=== PATIENT | female | born 1995 | race Two or more races ===

== ENCOUNTER 2020-03-23 12:25 | Inpatient (IN) | payer BC ==
[2020-03-23] MEDS ORDERED: Nalbuphine 10 MG/ML Syringe IVPUSH PRN (13:46)
[2020-03-23] MEDS ORDERED: Sodium Chloride 0.9% 10 ML Syringe FLUSH PRN (13:46)
[2020-03-23] MEDS ORDERED: Ondansetron 4 MG/2 ML SDV IVPUSH PRN (13:46)
--- NOTE | 2020-03-23 13:49 | PCM.LDHP ---
L&D History of Present Illness - General Date of Service: 03/23/20 Admit Problem/Dx: Patient Status Order with Admit Dx/Problem 03/23/20 12:34 Patient Status [ADT] Routine 03/23/20 13:47 Patient Status [ADT] Routine Admission Diagnosis/Problem Admission Diagnosis/Problem Source of Information: Patient History Limitations: Reports: No Limitations - History of Present Illness Introduction:: Patient is a 24 y/o at 40 3/7 wks who presents in labor. Contractions started earlier today. About every 7 minutes or so. No VB or LOF yet. - Related Data Allergies/Adverse Reactions: Allergies Allergy/AdvReac Type Severity Reaction Status Date / Time No Known Allergies Allergy Verified 03/23/20 12:33 Past Medical History - Past Health History Medical/Surgical History: Denies Medical/Surgical History - Past Surgical History HEENT Surgical History: Reports: Tonsillectomy Social & Family History - Tobacco Use Smoking Status *Q: Never Smoker - Alcohol Use Alcohol Use History: No - Recreational Drug Use Recreational Drug Use: No H&P Review of Systems - Review of Systems: Review Of Systems: See Below General: Reports: No Symptoms Pulmonary: Reports: No Symptoms Cardiovascular: Reports: No Symptoms Gastrointestinal: Reports: Abdominal Pain Genitourinary: Reports: No Symptoms Musculoskeletal: Reports: No Symptoms Psychiatric: Reports: No Symptoms Neurological: Reports: No Symptoms L&D Exam - Exam Exam: See Below - Vital Signs Weight: 64.093 kg - OB Specific Contraction Intensity: Moderate Movement: Active Heart Tones: Present Heart Tones per Min: 145 Heart Rate (FHR) Variability: Moderate (6-25 bmp) Presentation: Vertex - Mendoza Score Mendoza Score Cervix Position: Anterior Mendoza Score Consistency: Soft Mendoza Score Effacement: 51-70% Mendoza Score Dilation: 1-2 cm Mendoza Score Infant's Station: -2 Mendoza Score Total: 8 - Exam General: Alert, Oriented, Cooperative Lungs: Clear to Auscultation, Normal Respiratory Effort Cardiovascular: Regular Rate, Regular Rhythm GI/Abdominal Exam: Soft, Non-Tender Genitourinary: Normal external exam Extremities: Normal Inspection Skin: Warm, Dry, Intact - Patient Data Lab Results Last 24 hrs: Laboratory Results - last 24 hr 03/23/20 Range/Units 12:49 SARS CoV-2 RNA Rapid IZABEL Negative (NEGATIVE) - Problem List (1) 40 weeks gestation of SNOMED Code(s): 58749105 ICD Code: Z3A.40 - 40 WEEKS GESTATION OF Status: Acute Current Visit: Yes Problem List Initiated/Reviewed/Updated: Yes Orders Last 24hrs: Active Orders 24 hr Category Date Time Status Patient Status [ADT] Routine ADT 03/23/20 12:34 Active Patient Status [ADT] Routine ADT 03/23/20 13:47 Ordered Activity as Tolerated [RC] PFP Care 03/23/20 13:47 Ordered Communication Order [RC] ASDIRECTED Care 03/23/20 13:47 Ordered Heart Tones [RC] ASDIRECTED Care 03/23/20 13:47 Ordered Non Stress Test [RC] PER UNIT ROUTINE Care 03/23/20 12:34 Active Notify Provider [RC] PFP Care 03/23/20 13:47 Ordered Notify Provider [RC] PRN Care 03/23/20 13:47 Ordered Peripheral IV Care [RC] . DIRECTED Care 03/23/20 13:47 Ordered Vital Signs [RC] PER UNIT ROUTINE Care 03/23/20 12:34 Active Vital Signs [RC] PER UNIT ROUTINE Care 03/23/20 13:47 Ordered Regular Diet [DIET] Diet 03/23/20 Lunch Ordered CBC W/O DIFF,HEMOGRAM [HEME] Routine Lab 03/23/20 13:46 Ordered RAPID PLASMA REAGIN,RPR [CHEM] Routine Lab 03/23/20 13:47 Ordered TYPE AND SCREEN [BBK] Routine Lab 03/23/20 13:46 Ordered Lactated Ringers [Ringers, Lactated] 1,000 ml Med 03/23/20 14:00 Ordered IV ASDIRECTED Nalbuphine [Nubain] Med 03/23/20 13:46 Ordered 10 mg IVPUSH Q2H PRN Ondansetron [Zofran] Med 03/23/20 13:46 Ordered 4 mg IVPUSH Q4H PRN Oxytocin/Lactated Ringers [Pitocin in LR 10 Units/1,000 Med 03/23/20 14:00 Ordered ML] 10 unit in 1,000 ml IV .CONTINUOUS Sodium Chloride 0.9% [Saline Flush] Med 03/23/20 13:46 Ordered 10 ml FLUSH ASDIRECTED PRN Electronic Heart Tones Ext w TOCO [WOMSER] Ot 03/23/20 13:47 Ordered Routine Electronic Heart Tones Internal [WOMSER] Per Unit Ot 03/23/20 13:47 Ordered Routine Peripheral IV Insertion Adult [OM.PC] Routine Ot 03/23/20 13:47 Ordered Resuscitation Status Routine Resus Stat 03/23/20 12:34 Ordered Assessment/Plan Comment:: * Labs done * GBS negative * Pain management per patient preference * Anticipate
[2020-03-23] MEDS ORDERED: Oxytocin/Lactated Ringers 10 UNIT/1,000 ML BAG IV SCH ×2 (14:00→20:30)
[2020-03-23] MEDS: Lactated Ringers 1,000 ML IV SCH ×4 (15:00→22:30)
[2020-03-23] MEDS ORDERED: diphenhydrAMINE 50 MG/ML SDV IVPUSH PRN (16:08)
[2020-03-23] MEDS ORDERED: fentaNYL 100 MCG/2 ML SDV EPIDUR PRN (16:08)
[2020-03-23] MEDS ORDERED: ePHEDrine 50 MG/ML SDV IVPUSH PRN (16:08)
[2020-03-23] MEDS: Bupivacaine/fentaNYL/NS 100 ML Bag EPIDUR PRN (16:40)
--- NOTE | 2020-03-23 16:52 | PCM.PREANE ---
Preanesthetic Assessment - Procedure Proposed Procedure: Continuous Labor Epidural - Anesthesia/Transfusion/Family Hx Anesthesia History: No Prior Anesthesia Family History of Anesthesia Reaction: No Transfusion History: No Prior Transfusion(s) - Review of Systems General: No Symptoms Pulmonary: No Symptoms Cardiovascular: No Symptoms Gastrointestinal: No Symptoms Neurological: No Symptoms Other: Reports: None - Physical Assessment NPO Status Date: 03/23/20 (Full stomach) Vital Signs: Last Vital Signs Temp 37.3 C 03/23/20 12:47 Pulse 87 03/23/20 13:00 Resp 14 03/23/20 12:47 BP 125/78 03/23/20 13:00 Pulse Ox 99 03/23/20 12:47 Height: 4 ft 11 in Weight: 64.093 kg ASA Class: 1 Mental Status: Alert & Oriented x3 Airway Class: Mallampati = 2 Dentition: Reports: Normal Dentition ROM/Head Extension: Full Lungs: Clear to Auscultation, Normal Respiratory Effort Cardiovascular: Regular Rate, Regular Rhythm - Lab Values: Laboratory Last Values WBC 11.81 K/mm3 (3.98-10.04) H 03/23/20 15:32 RBC 3.85 M/mm3 (3.98-5.22) L 03/23/20 15:32 Hgb 11.7 gm/dl (11.2-15.7) 03/23/20 15:32 Hct 35.1 % (34.1-44.9) 03/23/20 15:32 MCV 91.2 fl (79.4-94.8) 03/23/20 15:32 MCH 30.4 pg (25.6-32.2) 03/23/20 15:32 MCHC 33.3 g/dl (32.2-35.5) 03/23/20 15:32 RDW Std Deviation 42.4 fL (36.4-46.3) 03/23/20 15:32 Plt Count 231 K/mm3 (182-369) 03/23/20 15:32 MPV 10.8 fl (9.4-12.3) 03/23/20 15:32 SARS CoV-2 RNA Rapid IZABEL Negative (NEGATIVE) 03/23/20 12:49 - Allergies Allergies/Adverse Reactions: Allergies Allergy/AdvReac Type Severity Reaction Status Date / Time No Known Allergies Allergy Verified 03/23/20 15:05 - Acknowledgements Anesthesia Type Planned: Epidural Pt an Appropriate Candidate for the Planned Anesthesia: Yes Alternatives and Risks of Anesthesia Discussed w Pt/Guardian: Yes Pt/Guardian Understands and Agrees with Anesthesia Plan: Yes PreAnesthesia Questionnaire - Past Health History Medical/Surgical History: Denies 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: - Past Surgical History HEENT Surgical History: Reports: Tonsillectomy - SUBSTANCE USE Smoking Status *Q: Never Smoker Tobacco Use Within Last Twelve Months: No Second Hand Smoke Exposure: No Recreational Drug Use History: No - HOME MEDS Home Medications: Home Meds Acetaminophen [Tylenol] 650 mg PO Q6HR 03/23/20 [History] Pnv No.95/Ferrous Fum/Folic AC [ Tablet] 1 tab PO DAILY 03/23/20 [History] - CURRENT (IN HOUSE) MEDS Current Meds: Current Medications Diphenhydramine HCl (Benadryl) 25 mg IVPUSH Q6H PRN PRN Reason: pruritis Ephedrine Sulfate (Ephedrine Sulfate) 5 mg IVPUSH ASDIRECTED PRN PRN Reason: Hypotension Fentanyl (Sublimaze) 100 mcg EPIDUR Q3H PRN PRN Reason: Pain Last Admin: 03/23/20 16:40 Dose: 100 mcg Documented by: Fentanyl/Bupivacaine HCl (Fentanyl/Bupivacaine/Ns 2 Mcg-0.125% 100 Ml) 100 ml EPIDUR ASDIRECTED PRN PRN Reason: Pain Last Admin: 03/23/20 16:40 Dose: 100 ml Documented by: Lactated Ringer's (Ringers, Lactated) 1,000 mls @ 100 mls/hr IV ASDIRECTED JOSSUE Last Admin: 03/23/20 16:02 Dose: 500 mls/hr Documented by: Oxytocin/Lactated Ringer's (Pitocin In Lr 10 Units/1,000 Ml) 10 unit in 1,000 mls @ 500 mls/hr IV .CONTINUOUS JOSSUE Nalbuphine HCl (Nubain) 10 mg IVPUSH Q2H PRN PRN Reason: Pain Ondansetron HCl (Zofran) 4 mg IVPUSH Q4H PRN PRN Reason: Nausea/Vomiting Sodium Chloride (Saline Flush) 10 ml FLUSH ASDIRECTED PRN PRN Reason: Keep Vein Open
[2020-03-23] MEDS ORDERED: Calcium Carbonate 500 MG Tab.Chew PO PRN (23:17)
[2020-03-24] MEDS: Bupivacaine/fentaNYL/NS 100 ML Bag EPIDUR PRN (00:47)
[2020-03-24] MEDS ORDERED: Acetaminophen 325 MG Tab PO PRN ×2 (01:31→07:40)
[2020-03-24] MEDS ORDERED: Lidocaine 1.5% with EPINEPHrine 1:200,000 5 ML Amp ONE (02:00)
[2020-03-24] MEDS ORDERED: Lidocaine 1% 10 ML MDV ONE (02:00)
[2020-03-24] MEDS ORDERED: Ampicillin 2 GM in Sodium Chloride 0.9% 100 ML IV SCH (02:00)
--- NOTE | 2020-03-24 06:16 | PCM.DEL ---
L & D Note - General Info Date of Service: 03/24/20 - Delivery Note Labor: Augmented by Oxytocin Delivery Outcome: Livebirth Delivery Method: Spontaneous Vaginal Delivery-Single Infant Delivery Mode: Spontaneous Presentation: Right Occiput Anterior (ASH) Nuchal Cord: None Anesthesia Type: Epidural Amniotic Fluid Description: Clear Episiotomy Type: None Laceration: 2nd Degree Suture type: Vicryl Suture size: 2-0 Placenta: Intact, Spontaneous Cord: 3 Vessels Estimated Blood Loss: 200 Resuscitation Needed: Yes : Bulb Syringe, Stimulated, Warmed, [place] Used, Warmer Used Delivery Comments (Free Text/Narrative):: Patient found to be complete and began pushing. With maternal pushing effort head delivered from an ASH presentation. No nuchal cord present. With gentle downward traction the shoulders and body delivered . Infant placed on maternal abdomen. Cord clamped and cut. Cord blood obtained. Placenta allowed time to separate and expelled intact. Inspection of perineum showed a 2nd degree laceration which was repaired with a 2-0 vicryl in the typical fashion - General Info Date of Service: 03/24/20 - Patient Data Vitals - Most Recent: Last Vital Signs Temp 38.0 C 03/24/20 02:11 Pulse 87 03/23/20 13:00 Resp 14 03/23/20 12:47 BP 125/78 03/23/20 13:00 Pulse Ox 99 03/23/20 12:47 Weight - Most Recent: 64.093 kg I&O - Last 24 Hours: Intake & Output 03/23/20 03/23/20 03/24/20 14:59 22:59 06:59 Intake Total 1999 Balance 1999 - Problem List & Annotations (1) 40 weeks gestation of SNOMED Code(s): 53011876 Code(s): Z3A.40 - 40 WEEKS GESTATION OF Status: Acute Current Visit: Yes (2) Chorioamnionitis SNOMED Code(s): 71388501 Code(s): O41.1290 - CHORIOAMNIONITIS, UNSP TRIMESTER, NOT APPLICABLE OR UNSP Status: Acute Current Visit: Yes Qualifiers: Trimester: third trimester (3) Vaginal delivery SNOMED Code(s): 434693747 Code(s): O80 - ENCOUNTER FOR FULL-TERM UNCOMPLICATED DELIVERY Status: Acute Current Visit: Yes - Problem List Review Problem List Initiated/Reviewed/Updated: Yes - My Orders Last 24 Hours: My Active Orders 03/23/20 Lunch Regular Diet [DIET] 03/23/20 12:34 Patient Status [ADT] Routine Non Stress Test [RC] PER UNIT ROUTINE Vital Signs [RC] PER UNIT ROUTINE Resuscitation Status Routine 03/23/20 13:46 Nalbuphine [Nubain] 10 mg IVPUSH Q2H PRN Ondansetron [Zofran] 4 mg IVPUSH Q4H PRN Sodium Chloride 0.9% [Saline Flush] 10 ml FLUSH ASDIRECTED PRN 03/23/20 13:47 Patient Status [ADT] Routine Activity as Tolerated [RC] PFP Communication Order [RC] ASDIRECTED Heart Tones [RC] ASDIRECTED Notify Provider [RC] PFP Notify Provider [RC] PRN Peripheral IV Care [RC] Q2HR Vital Signs [RC] PER UNIT ROUTINE Electronic Heart Tones Ext w TOCO [WOMSER] Routine Electronic Heart Tones Internal [WOMSER] Per Unit Routine Peripheral IV Insertion Adult [OM.PC] Routine 03/23/20 14:00 Lactated Ringers [Ringers, Lactated] 1,000 ml IV ASDIRECTED Oxytocin/Lactated Ringers [Pitocin in LR 10 Units/1,000 ML] 10 unit in 1,000 ml IV .CONTINUOUS 03/23/20 20:30 Oxytocin/Lactated Ringers [Pitocin in LR 10 Units/1,000 ML] 10 unit in 1,000 ml IV TITRATE 03/23/20 23:17 Calcium Carbonate [Tums] 1,000 mg PO Q2HR PRN 03/24/20 01:31 Acetaminophen [TylenoL] 975 mg PO Q6H PRN 03/24/20 02:00 Ampicillin 2 gm Sodium Chloride 0.9% [Normal Saline] 100 ml IV Q6H 03/24/20 06:13 Patient Status Manage Transfer [TRANSFER] Routine - Assessment Assessment:: PPD#0 - Plan Plan:: * Routine cares * No need for further antibiotics as vaginal delivery * Breast feeding * Discharge home in 2 days
[2020-03-24] MEDS ORDERED: Benzocaine/Menthol 20%-0.5% Spray 56 GM Canister TOP PRN (07:40)
[2020-03-24] MEDS ORDERED: Docusate Sodium 100 MG Cap PO PRN (07:40)
[2020-03-24] MEDS: Witch Hazel Medicated Pads 40/Jar TOP PRN (08:00)
--- NOTE | 2020-03-24 09:11 | PCM.SN.2 ---
- Free Text/Narrative Note: 0130 Called by RN that pt with elevated temperature of 100.4. Pt does feel warm. No signs of tachycardia. Orders given to treat for chorio with Amp and Gent. Continue to work towards vaginal delivery
[2020-03-24] MEDS: Ibuprofen 600 MG Tab PO PRN ×3 (12:50→23:55)
--- NOTE | 2020-03-25 07:11 | PCM.PNPP ---
- General Info Date of Service: 03/25/20 Functional Status: Reports: Pain Controlled, Tolerating Diet, Ambulating, Urinating - Review of Systems General: Reports: No Symptoms Pulmonary: Reports: No Symptoms Cardiovascular: Reports: No Symptoms Gastrointestinal: Reports: No Symptoms Genitourinary: Reports: No Symptoms Musculoskeletal: Reports: No Symptoms - Patient Data Vital Signs - Most Recent: Last Vital Signs Temp 36.7 C 03/25/20 04:06 Pulse 80 03/25/20 04:06 Resp 14 03/25/20 04:06 BP 104/69 03/25/20 04:06 Pulse Ox 97 03/25/20 04:06 Weight - Most Recent: 64.093 kg Med Orders - Current: Current Medications Acetaminophen (Tylenol) 650 mg PO Q4H PRN PRN Reason: mild pain or fever Benzocaine/Menthol (Dermoplast Pain Relief Boaz) 0 gm TOP ASDIRECTED PRN PRN Reason: Perineal Comfort Measure Last Admin: 03/24/20 08:00 Dose: 1 spray Documented by: Docusate Sodium (Colace) 100 mg PO BID PRN PRN Reason: Constipation Ibuprofen (Motrin) 600 mg PO Q4H PRN PRN Reason: Mild pain or fever Last Admin: 03/24/20 23:55 Dose: 600 mg Documented by: Chris Mcbride) 1 pad TOP ASDIRECTED PRN PRN Reason: Perineal Comfort Measure Last Admin: 03/24/20 08:00 Dose: 1 pad Documented by: Discontinued Medications Acetaminophen (Tylenol) 975 mg PO Q6H PRN PRN Reason: Fever Last Admin: 03/24/20 02:11 Dose: 975 mg Documented by: Calcium Carbonate/Glycine (Tums) 1,000 mg PO Q2HR PRN PRN Reason: Indigestion Diphenhydramine HCl (Benadryl) 25 mg IVPUSH Q6H PRN PRN Reason: pruritis Ephedrine Sulfate (Ephedrine Sulfate) 5 mg IVPUSH ASDIRECTED PRN PRN Reason: Hypotension Fentanyl (Sublimaze) 100 mcg EPIDUR Q3H PRN PRN Reason: Pain Last Admin: 03/23/20 16:40 Dose: 100 mcg Documented by: Fentanyl/Bupivacaine HCl (Fentanyl/Bupivacaine/Ns 2 Mcg-0.125% 100 Ml) 100 ml EPIDUR ASDIRECTED PRN PRN Reason: Pain Last Admin: 03/24/20 00:47 Dose: 100 ml Documented by: Gentamicin Sulfate (Pharmacy To Dose - Gentamicin) 320.465 dose .XX ASDIRECTED JOSSUE Lactated Ringer's (Ringers, Lactated) 1,000 mls @ 100 mls/hr IV ASDIRECTED JOSSUE Last Admin: 03/23/20 22:30 Dose: 100 mls/hr Documented by: Oxytocin/Lactated Ringer's (Pitocin In Lr 10 Units/1,000 Ml) 10 unit in 1,000 mls @ 500 mls/hr IV .CONTINUOUS JOSSUE Oxytocin/Lactated Ringer's (Pitocin In Lr 10 Units/1,000 Ml) 10 unit in 1,000 mls @ 12 mls/hr IV TITRATE JOSSUE; Protocol Last Titration: 03/24/20 05:40 Dose: 83.33 munits/min, 500 mls/hr Documented by: Ampicillin Sodium 2 gm/ Sodium (Chloride) 100 mls @ 200 mls/hr IV Q6H JOSSUE Last Admin: 03/24/20 02:12 Dose: 200 mls/hr Documented by: Gentamicin Sulfate 320 mg/ (Sodium Chloride) 108 mls @ 108 mls/hr IV ONETIME ONE Stop: 03/24/20 02:59 Last Admin: 03/24/20 02:51 Dose: 108 mls/hr Documented by: Nalbuphine HCl (Nubain) 10 mg IVPUSH Q2H PRN PRN Reason: Pain Ondansetron HCl (Zofran) 4 mg IVPUSH Q4H PRN PRN Reason: Nausea/Vomiting Sodium Chloride (Saline Flush) 10 ml FLUSH ASDIRECTED PRN PRN Reason: Keep Vein Open - Infant Interaction Disposition, : Nenzel in Room with Family Infant Interaction: Holding Infant Infant Feeding: Attempted ; Nursed Fair/Poor Support Person: Significant Other - Recovery Exam Fundal Tone: Firm Fundal Level: 3 Fingerbreadths Below Umbilicus Fundal Placement: Midline Lochia Amount: Scant, Small Lochia Color: Rubra/Red Perineum Description: Other (see below) Other Perinuem Description: 2nd degree w/rep;edema better Episiotomy/Laceration: Approximated Bladder Status: Nonpalpable, Voiding - Exam General: Alert, Oriented, Cooperative GI/Abdominal Exam: Soft, Non-Tender Extremities: Normal Inspection - Problem List & Annotations (1) 40 weeks gestation of SNOMED Code(s): 65293704 Code(s): Z3A.40 - 40 WEEKS GESTATION OF Status: Acute Current Visit: Yes (2) Chorioamnionitis SNOMED Code(s): 63152552 Code(s): O41.1290 - CHORIOAMNIONITIS, UNSP TRIMESTER, NOT APPLICABLE OR UNSP Status: Acute Current Visit: Yes Qualifiers: Trimester: third trimester (3) Vaginal delivery SNOMED Code(s): 279937516 Code(s): O80 - ENCOUNTER FOR FULL-TERM UNCOMPLICATED DELIVERY Status: Acute Current Visit: Yes - Problem List Review Problem List Initiated/Reviewed/Updated: Yes - My Orders Last 24 Hours: My Active Orders 03/24/20 07:40 Acetaminophen [TylenoL] 650 mg PO Q4H PRN Benzocaine/Menthol [Dermoplast Pain Relief Boaz] See Dose Instructions TOP ASDIRECTED PRN Docusate Sodium [Colace] 100 mg PO BID PRN Ibuprofen [Motrin] 600 mg PO Q4H PRN witch Hasmukh [Tucks] 1 pad TOP ASDIRECTED PRN Heat Therapy [OM.PC] PRN 03/24/20 07:40 Activity as Tolerated [RC] PER UNIT ROUTINE Vital Signs [RC] 09,15,21,03 Assess Lochia [WOMSER] Per Unit Routine Assess Uterine Involution [WOMSER] Per Unit Routine Breast Pump [WOMSER] Per Unit Routine Ice Therapy [OM.PC] Per Unit Routine Perineal Care [OM.PC] Per Unit Routine Peripheral IV Discontinue [OM.PC] Routine Sitz Bath [OM.PC] Per Unit Routine 03/25/20 07:40 Heat Therapy [OM.PC] PRN - Assessment Assessment:: PPD#1 - Plan Plan:: * Routine cares * Breast feeding * Discharge home tomorrow
[2020-03-25] MEDS: Ibuprofen 600 MG Tab PO PRN (11:22)
--- NOTE | 2020-03-25 19:15 | PCM48HPAN ---
Post Anesthesia Note - EVALUATION WITHIN 48HRS OF ANESTHETIC Vital Signs in Normal Range: Yes Patient Participated in Evaluation: No (Report from RN) Respiratory Function Stable: Yes Airway Patent: Yes Cardiovascular Function Stable: Yes Hydration Status Stable: Yes Pain Control Satisfactory: Yes Nausea and Vomiting Control Satisfactory: Yes Mental Status Recovered: Yes Vital Signs: Last Vital Signs Temp 36.3 C 03/25/20 08:51 Pulse 110 H 03/25/20 08:51 Resp 16 03/25/20 08:51 BP 121/78 03/25/20 08:51 Pulse Ox 98 03/25/20 08:51 - COMMENTS/OBSERVATIONS Free Text/Narrative:: Routine recovery post-vaginal delivery. No sequelae at epidural site per medical staff specialist. No concerns at this time.
--- NOTE | 2020-03-26 05:54 | PCM.DCSUM1 ---
Discharge Summary - Discharge Data Discharge Date: 03/26/20 Discharge Disposition: Home, Self-Care 01 Condition: Good - Referral to Home Health Primary Care Physician: Bren Chicas MD - Discharge Diagnosis/Problem(s) (1) 40 weeks gestation of SNOMED Code(s): 13098488 ICD Code: Z3A.40 - 40 WEEKS GESTATION OF Status: Acute Current Visit: Yes (2) Chorioamnionitis SNOMED Code(s): 82311019 ICD Code: O41.1290 - CHORIOAMNIONITIS, UNSP TRIMESTER, NOT APPLICABLE OR UNSP Status: Acute Current Visit: Yes Qualifiers: Trimester: third trimester (3) Vaginal delivery SNOMED Code(s): 970887013 ICD Code: O80 - ENCOUNTER FOR FULL-TERM UNCOMPLICATED DELIVERY Status: Acute Current Visit: Yes - Patient Summary/Data Complications: None Consults: None Recommended Follow-up Testing/Procedures: Follow up in 3 weeks for check dd Hospital Course: 24 y/o at 40 3/7 wks who presented in labor. She progressed well with pitocin augmentation. Did have one elevated temperature in labor and so was treated for chorioamnionitis. Did achieve an uncomplicated . See delivery note. did well and was discharged home on PPD#2 - Patient Instructions Diet: Regular Diet as Tolerated Activity: As Tolerated Activity, Other: Pelvic rest for 6 weeks Driving: May Drive Today Showering/Bathing: May Shower Showering/Bathing, Other: May Bathe Notify Provider of: Fever, Increased Pain, Swelling and Redness, Drainage, Nausea and/or Vomiting - Discharge Plan *PRESCRIPTION DRUG MONITORING PROGRAM REVIEWED*: No *COPY OF PRESCRIPTION DRUG MONITORING REPORT IN PATIENT MONIQUE: No Home Medications: Home Meds Pnv No.95/Ferrous Fum/Folic AC [ Tablet] 1 tab PO DAILY 03/23/20 [History] Docusate Sodium [Colace] 100 mg PO BID PRN cap 03/25/20 [Rx] Ibuprofen [Motrin] 600 mg PO Q4H PRN tablet 03/25/20 [Rx] Referrals: Bren Chicas MD [Primary Care Provider] - - Discharge Summary/Plan Comment DC Time >30 min.: No - Patient Data Vitals - Most Recent: Last Vital Signs Temp 37.3 C 03/26/20 03:22 Pulse 87 03/26/20 03:22 Resp 15 03/26/20 03:22 BP 119/89 03/26/20 03:22 Pulse Ox 97 03/26/20 03:22 Weight - Most Recent: 64.093 kg I&O - Last 24 hours: Intake & Output 03/25/20 03/25/20 03/26/20 14:59 22:59 06:59 Intake Total 420 Balance 420 Med Orders - Current: Current Medications Acetaminophen (Tylenol) 650 mg PO Q4H PRN PRN Reason: mild pain or fever Benzocaine/Menthol (Dermoplast Pain Relief [place]) 0 gm TOP ASDIRECTED PRN PRN Reason: Perineal Comfort Measure Last Admin: 03/24/20 08:00 Dose: 1 spray Documented by: Docusate Sodium (Colace) 100 mg PO BID PRN PRN Reason: Constipation Last Admin: 03/25/20 21:19 Dose: 100 mg Documented by: Ibuprofen (Motrin) 600 mg PO Q4H PRN PRN Reason: Mild pain or fever Last Admin: 03/25/20 11:22 Dose: 600 mg Documented by: Chris Obregon (Laney) 1 pad TOP ASDIRECTED PRN PRN Reason: Perineal Comfort Measure Last Admin: 03/24/20 08:00 Dose: 1 pad Documented by: Discontinued Medications Acetaminophen (Tylenol) 975 mg PO Q6H PRN PRN Reason: Fever Last Admin: 03/24/20 02:11 Dose: 975 mg Documented by: Calcium Carbonate/Glycine (Tums) 1,000 mg PO Q2HR PRN PRN Reason: Indigestion Diphenhydramine HCl (Benadryl) 25 mg IVPUSH Q6H PRN PRN Reason: pruritis Ephedrine Sulfate (Ephedrine Sulfate) 5 mg IVPUSH ASDIRECTED PRN PRN Reason: Hypotension Fentanyl (Sublimaze) 100 mcg EPIDUR Q3H PRN PRN Reason: Pain Last Admin: 03/23/20 16:40 Dose: 100 mcg Documented by: Fentanyl/Bupivacaine HCl (Fentanyl/Bupivacaine/Ns 2 Mcg-0.125% 100 Ml) 100 ml EPIDUR ASDIRECTED PRN PRN Reason: Pain Last Admin: 03/24/20 00:47 Dose: 100 ml Documented by: Gentamicin Sulfate (Pharmacy To Dose - Gentamicin) 320.465 dose .XX ASDIRECTED JOSSUE Lactated Ringer's (Ringers, Lactated) 1,000 mls @ 100 mls/hr IV ASDIRECTED JOSSUE Last Admin: 03/23/20 22:30 Dose: 100 mls/hr Documented by: Oxytocin/Lactated Ringer's (Pitocin In Lr 10 Units/1,000 Ml) 10 unit in 1,000 mls @ 500 mls/hr IV .CONTINUOUS JOSSUE Oxytocin/Lactated Ringer's (Pitocin In Lr 10 Units/1,000 Ml) 10 unit in 1,000 mls @ 12 mls/hr IV TITRATE JOSSUE; Protocol Last Titration: 03/24/20 05:40 Dose: 83.33 munits/min, 500 mls/hr Documented by: Ampicillin Sodium 2 gm/ Sodium (Chloride) 100 mls @ 200 mls/hr IV Q6H JOSSUE Last Admin: 03/24/20 02:12 Dose: 200 mls/hr Documented by: Gentamicin Sulfate 320 mg/ (Sodium Chloride) 108 mls @ 108 mls/hr IV ONETIME ONE Stop: 03/24/20 02:59 Last Admin: 03/24/20 02:51 Dose: 108 mls/hr Documented by: Nalbuphine HCl (Nubain) 10 mg IVPUSH Q2H PRN PRN Reason: Pain Ondansetron HCl (Zofran) 4 mg IVPUSH Q4H PRN PRN Reason: Nausea/Vomiting Sodium Chloride (Saline Flush) 10 ml FLUSH ASDIRECTED PRN PRN Reason: Keep Vein Open
--- NOTE | 2020-03-26 05:54 | PCM.PNPP ---
- General Info Date of Service: 03/26/20 Functional Status: Reports: Pain Controlled, Tolerating Diet, Ambulating, Urinating - Review of Systems General: Reports: No Symptoms Pulmonary: Reports: No Symptoms Cardiovascular: Reports: No Symptoms Gastrointestinal: Reports: No Symptoms Genitourinary: Reports: No Symptoms Musculoskeletal: Reports: No Symptoms - Patient Data Vital Signs - Most Recent: Last Vital Signs Temp 37.3 C 03/26/20 03:22 Pulse 87 03/26/20 03:22 Resp 15 03/26/20 03:22 BP 119/89 03/26/20 03:22 Pulse Ox 97 03/26/20 03:22 Weight - Most Recent: 64.093 kg I&O - Last 24 Hours: Intake & Output 03/25/20 03/25/20 03/26/20 14:59 22:59 06:59 Intake Total 420 Balance 420 Med Orders - Current: Current Medications Acetaminophen (Tylenol) 650 mg PO Q4H PRN PRN Reason: mild pain or fever Benzocaine/Menthol (Dermoplast Pain Relief [place]) 0 gm TOP ASDIRECTED PRN PRN Reason: Perineal Comfort Measure Last Admin: 03/24/20 08:00 Dose: 1 spray Documented by: Docusate Sodium (Colace) 100 mg PO BID PRN PRN Reason: Constipation Last Admin: 03/25/20 21:19 Dose: 100 mg Documented by: Ibuprofen (Motrin) 600 mg PO Q4H PRN PRN Reason: Mild pain or fever Last Admin: 03/25/20 11:22 Dose: 600 mg Documented by: Chris Obregon (Mattcks) 1 pad TOP ASDIRECTED PRN PRN Reason: Perineal Comfort Measure Last Admin: 03/24/20 08:00 Dose: 1 pad Documented by: Discontinued Medications Acetaminophen (Tylenol) 975 mg PO Q6H PRN PRN Reason: Fever Last Admin: 03/24/20 02:11 Dose: 975 mg Documented by: Calcium Carbonate/Glycine (Tums) 1,000 mg PO Q2HR PRN PRN Reason: Indigestion Diphenhydramine HCl (Benadryl) 25 mg IVPUSH Q6H PRN PRN Reason: pruritis Ephedrine Sulfate (Ephedrine Sulfate) 5 mg IVPUSH ASDIRECTED PRN PRN Reason: Hypotension Fentanyl (Sublimaze) 100 mcg EPIDUR Q3H PRN PRN Reason: Pain Last Admin: 03/23/20 16:40 Dose: 100 mcg Documented by: Fentanyl/Bupivacaine HCl (Fentanyl/Bupivacaine/Ns 2 Mcg-0.125% 100 Ml) 100 ml EPIDUR ASDIRECTED PRN PRN Reason: Pain Last Admin: 03/24/20 00:47 Dose: 100 ml Documented by: Gentamicin Sulfate (Pharmacy To Dose - Gentamicin) 320.465 dose .XX ASDIRECTED JOSSUE Lactated Ringer's (Ringers, Lactated) 1,000 mls @ 100 mls/hr IV ASDIRECTED JOSSUE Last Admin: 03/23/20 22:30 Dose: 100 mls/hr Documented by: Oxytocin/Lactated Ringer's (Pitocin In Lr 10 Units/1,000 Ml) 10 unit in 1,000 mls @ 500 mls/hr IV .CONTINUOUS JOSSUE Oxytocin/Lactated Ringer's (Pitocin In Lr 10 Units/1,000 Ml) 10 unit in 1,000 mls @ 12 mls/hr IV TITRATE JOSSUE; Protocol Last Titration: 03/24/20 05:40 Dose: 83.33 munits/min, 500 mls/hr Documented by: Ampicillin Sodium 2 gm/ Sodium (Chloride) 100 mls @ 200 mls/hr IV Q6H JOSSUE Last Admin: 03/24/20 02:12 Dose: 200 mls/hr Documented by: Gentamicin Sulfate 320 mg/ (Sodium Chloride) 108 mls @ 108 mls/hr IV ONETIME ONE Stop: 03/24/20 02:59 Last Admin: 03/24/20 02:51 Dose: 108 mls/hr Documented by: Nalbuphine HCl (Nubain) 10 mg IVPUSH Q2H PRN PRN Reason: Pain Ondansetron HCl (Zofran) 4 mg IVPUSH Q4H PRN PRN Reason: Nausea/Vomiting Sodium Chloride (Saline Flush) 10 ml FLUSH ASDIRECTED PRN PRN Reason: Keep Vein Open - Interaction Disposition, : [place] in Room with Family Interaction: Holding Infant Feeding: Attempted ; Nursed Fair/Poor Support Person: Significant Other - Recovery Exam Fundal Tone: Firm Fundal Level: 1 Fingerbreadths Below Umbilicus Fundal Placement: Midline Lochia Amount: Small Lochia Color: Rubra/Red Perineum Description: Other (see below) Other Perinuem Description: 2nd degree w/rep Episiotomy/Laceration: Approximated Bladder Status: Nonpalpable, Voiding - Exam General: Alert, Oriented, Cooperative GI/Abdominal Exam: Soft, Non-Tender Extremities: Normal Inspection - Problem List & Annotations (1) 40 weeks gestation of SNOMED Code(s): 71369284 Code(s): Z3A.40 - 40 WEEKS GESTATION OF Status: Acute Current Visit: Yes (2) Chorioamnionitis SNOMED Code(s): 88569068 Code(s): O41.1290 - CHORIOAMNIONITIS, UNSP TRIMESTER, NOT APPLICABLE OR UNSP Status: Acute Current Visit: Yes Qualifiers: Trimester: third trimester (3) Vaginal delivery SNOMED Code(s): 730448914 Code(s): O80 - ENCOUNTER FOR FULL-TERM UNCOMPLICATED DELIVERY Status: Acute Current Visit: Yes - Problem List Review Problem List Initiated/Reviewed/Updated: Yes - My Orders Last 24 Hours: My Active Orders 03/25/20 07:40 Heat Therapy [OM.PC] PRN - Assessment Assessment:: PPD#2 - Plan Plan:: * Routine cares * Breast feeding * Discharge home today
[2020-03-26] MEDS: Witch Hazel Medicated Pads 40/Jar TOP PRN (09:28)
== END 2020-03-26 10:10 | disposition home or self-care (01) | DRG 560 ==
LOC: JD.OB 12:25 → JD.OBCHECK 12:25 → JD.OB 13:47 → JD.OBCHECK 13:47 → OBSVTOIN 03-24 05:38 → JD.OB 03-24 05:39
PROVIDERS: ADMIT Obstetrics & Gynecology; ATTEND Obstetrics & Gynecology
PROC: 10E0XZZ Delivery of Products of Conception, External Approach (ICD-10-PCS; principal; 2020-03-24)
PROC: 3E0R3BZ Introduction of Anesthetic Agent into Spinal Canal, Percutaneous Approach (ICD-10-PCS; 2020-03-24)
PROC: 0KQM0ZZ Repair Perineum Muscle, Open Approach (ICD-10-PCS; 2020-03-24)
DX: O48.0 Post-term pregnancy (principal); O41.1230 Chorioamnionitis, third trimester, not applicable or unspecified; Z3A.40 40 weeks gestation of pregnancy; Z37.0 Single live birth; O70.1 Second degree perineal laceration during delivery; Z20.828 Contact with and (suspected) exposure to other viral communicable diseases
CPT/HCPCS: 01967; 36415; 51702; 59025; 59409; 85027; 86592; 86850; 86900; 86901; A9270-GY; J0290; J1580; J2001; J2590; J3010; J7050; J7120; U0002